=== PATIENT | female | born 1945 | race Caucasian/White ===

== ENCOUNTER 2017-09-02 11:12 | Inpatient (IN) | payer MEDICARE ==
[2017-09-02] VITALS (17 sets, daily range): BP systolic 136–164; BP diastolic 77–111
[~2017-09-02] VITALS: Ht 167.6 cm; Wt 103.6 kg
[2017-09-02] MEDS ORDERED: ONDANSETRON HCL 4 MG/2 ML VIAL ONE (11:35)
[2017-09-02] MEDS ORDERED: MORPHINE SULFATE 8 MG/ML VIAL ONE (11:36)
[2017-09-02 11:41] LABS: BASOPHILS % (AUTO) 0.5 % (0.0-5.0); EOSINOPHILS % (AUTO) 0.6 % (0.0-8.0); LYMPHOCYTES % (AUTO) 19.5 % (21.0-51.0); MEAN CORPUSCULAR HEMOGLOBIN 29.6 pg (27.0-33.0); MEAN CORPUSCULAR HGB CONC 33.9 g/dL (32.0-36.0); MEAN CORPUSCULAR VOLUME 87.3 fL (79-99); MONOCYTES % (AUTO) 5.8 % (3.0-13.0); NEUTROPHILS % (AUTO) 73.6 % (40.0-77.0); PLATELET COUNT (AUTO) 198 K/uL (130-400); RED BLOOD CELL COUNT(AUTO) 5.15 MIL/uL (4.00-5.50); RED CELL DISTRIBUTION WIDTH 13.6 % (11.0-15.5)
[2017-09-02 11:50] LABS: CREATININE 0.9 mg/dL (0.5-1.5); POTASSIUM 4.5 mmol/L (3.5-5.1)
[2017-09-02] MEDS ORDERED: METOPROLOL TARTRATE 1 MG/ML 5ML VIAL IV ONE ×2 (11:52→13:10)
[2017-09-02] MEDS ORDERED: NITROGLYCERIN 50 MG/D5% WATER 1 BOT ONE (11:52)
[2017-09-02 12:07] LABS: ALBUMIN 3.7 g/dL (3.5-5.0); BILIRUBIN,TOTAL 0.6 mg/dL (0.2-1.0); CREATINE KINASE MB 0.8 ng/mL (0.5-3.6); TOTAL PROTEIN, SERUM 7.5 g/dL (6.0-8.3)
[2017-09-02] MEDS: SODIUM CHLORIDE 0.9% 1000ML 1,000 ML IV SCH ×2 (12:20→22:33)
[2017-09-02] MEDS ORDERED: MORPHINE SULFATE 2 MG/ML 1ML SYG IV PRN (12:30)
[2017-09-02] MEDS ORDERED: ACETAMINOPHEN 325 MG TAB PO PRN (12:30)
[2017-09-02] MEDS ORDERED: HYDRALAZINE HCL 20 MG/ML VIAL IV PRN (12:30)
[2017-09-02 12:34] LABS: INR 1.1 (0.85-1.15); PARTIAL THROMBOPLASTIN TIME 25.5 SEC (26.3-35.5); PROTHROMBIN TIME 11.5 SEC (9.6-11.6)
[2017-09-02] MEDS ORDERED: BIVALIRUDIN 250 MG/VIAL IV ONE ×2 (12:38→14:14)
[2017-09-02] MEDS ORDERED: ISOVUE-370 50ML VIAL IV ONE (12:38)
[2017-09-02] MEDS ORDERED: IOPAMIDOL-370 100 ML VIAL IV ONE ×2 (12:38→14:20)
[2017-09-02] MEDS ORDERED: LIDOCAINE HCL 2% 20ML ONE (12:38)
[2017-09-02] MEDS ORDERED: NITROGLYCERIN 5 MG/ML 10 ML VIAL IV ONE (13:04)
[2017-09-02] MEDS ORDERED: MORPHINE SULFATE 4 MG/1ML SYG ONE (13:04)
[2017-09-02] MEDS ORDERED: DOPAMINE HCL 400 MG/D5%-WATER 0 ML IV ONE (13:11)
[2017-09-02] MEDS ORDERED: LIDOCAINE PF 2% 5ML ABBOJECT ONE (13:11)
[2017-09-02] MEDS ORDERED: ATROPINE SULFATE 0.1 MG/ML 10 ML SYG IVP ONE (13:11)
[2017-09-02] MEDS ORDERED: EPTIFIBATIDE 2 MG/ML 10 ML VIAL IVP ONE (13:30)
[2017-09-02] MEDS ORDERED: EPTIFIBATIDE 75MG/100ML BOTTLE 100 ML IV ONE (13:30)
[2017-09-02] MEDS ORDERED: TICAGRELOR 90 MG TABLET ONE (13:34)
[2017-09-02] MEDS ORDERED: EPTIFIBATIDE 75MG/100ML BOTTLE 100 ML IV SCH (15:00)
[2017-09-02] MEDS ORDERED: NITROGLYCERIN 50 MG/D5% WATER 1 BOT IV PRN (15:00)
[2017-09-02] MEDS ORDERED: SODIUM CHLORIDE 0.9% 1000ML 1,000 ML IV SCH (15:00)
[2017-09-02] MEDS: ONDANSETRON HCL 4 MG/2 ML VIAL IV PRN ×2 (16:08→22:33)
[2017-09-02 16:52] LABS: CREATININE 0.9 mg/dL (0.5-1.5); MAGNESIUM 1.8 mg/dL (1.80-2.40); POTASSIUM 4.9 mmol/L (3.5-5.1)
[2017-09-02] MEDS ORDERED: MAGNESIUM 2GM PREMIX 50ML 50 ML IV PRN (17:15)
[2017-09-02 18:13] LABS: CREATINE KINASE MB 258.6 ng/mL (0.5-3.6)
[2017-09-02 18:14] LABS: TROPONIN I 90.67 ng/mL (0.00-0.06)
[2017-09-02] MEDS: METOPROLOL TARTRATE 25 MG TAB PO SCH (20:11)
[2017-09-02] MEDS: ATORVASTATIN CALCIUM 40 MG TABLET PO SCH (20:11)
[2017-09-02] MEDS ORDERED: METOPROLOL TARTRATE 25 MG TAB PO SCH (21:00)
[2017-09-03] VITALS (19 sets, daily range): BP systolic 98–144; BP diastolic 46–86
[2017-09-03 02:54] LABS: HEMATOCRIT 41.7 % (36-48); MEAN CORPUSCULAR HEMOGLOBIN 29.6 pg (27.0-33.0); MEAN CORPUSCULAR HGB CONC 34.3 g/dL (32.0-36.0); MEAN CORPUSCULAR VOLUME 86.2 fL (79-99); PLATELET COUNT (AUTO) 193 K/uL (130-400); RED BLOOD CELL COUNT(AUTO) 4.83 MIL/uL (4.00-5.50); RED CELL DISTRIBUTION WIDTH 13.4 % (11.0-15.5); WHITE BLOOD COUNT (AUTO) 9.6 K/uL (4.8-10.8)
[2017-09-03 03:36] LABS: CREATININE 0.9 mg/dL (0.5-1.5); LYMPHOCYTES % (MANUAL) 12 % (22-44); MAGNESIUM 2.3 mg/dL (1.80-2.40); MAN.DIFF COMMENT-IMPRESSION MANUAL DIFFERENTIAL; MONOCYTES % (MANUAL) 5 % (2-9); POTASSIUM 4.3 mmol/L (3.5-5.1); SEGMENTED NEUTROPHILS % 83 % (40-70)
[2017-09-03 03:54] LABS: TROPONIN I 82.12 ng/mL (0.00-0.06)
[2017-09-03] MEDS: SODIUM CHLORIDE 0.9% 1000ML 1,000 ML IV SCH ×3 (07:33→23:09)
[2017-09-03] MEDS: ASPIRIN 325MG EC TAB 325 MG TABLET.DR PO SCH (08:21)
[2017-09-03] MEDS: METOPROLOL TARTRATE 25 MG TAB PO SCH ×3 (08:22→19:49)
[2017-09-03] MEDS: PANTOPRAZOLE SODIUM 40 MG TABLET.DR PO SCH (08:22)
[2017-09-03] MEDS: LISINOPRIL 10 MG TABLET PO SCH (08:22)
[2017-09-03] MEDS ORDERED: TICAGRELOR 90 MG TABLET PO SCH (09:00)
[2017-09-03 10:08] LABS: CREATINE KINASE MB 147.1 ng/mL (0.5-3.6)
[2017-09-03 10:09] LABS: TROPONIN I 39.73 ng/mL (0.00-0.06)
[2017-09-03] MEDS ORDERED: PRASUGREL HCL 10 MG TABLET PO SCH (10:45)
[2017-09-03] MEDS: ATORVASTATIN CALCIUM 40 MG TABLET PO SCH (21:30)
[2017-09-04 03:32] VITALS: BP 114/71
[2017-09-04 07:00] VITALS: BP 117/66
[2017-09-04] MEDS ORDERED: PRASUGREL HCL 10 MG TABLET PO SCH (09:00)
[2017-09-04] MEDS: ASPIRIN 325MG EC TAB 325 MG TABLET.DR PO SCH (09:20)
[2017-09-04] MEDS: PANTOPRAZOLE SODIUM 40 MG TABLET.DR PO SCH (09:20)
[2017-09-04] MEDS: METOPROLOL TARTRATE 25 MG TAB PO SCH (09:20)
[2017-09-04] MEDS: LISINOPRIL 10 MG TABLET PO SCH (09:21)
[2017-09-04 11:34] VITALS: BP 109/69
[2017-09-04] MEDS ORDERED: PRAS10TA6 PO (13:05)
[2017-09-04] MEDS ORDERED: LISI10TA7 PO (13:05)
[2017-09-04] MEDS ORDERED: ATOR40TA69 PO (13:05)
[2017-09-04] MEDS ORDERED: PANT40TA PO (13:05)
[2017-09-04] MEDS ORDERED: ASPI-891 PO (13:05)
[2017-09-04] MEDS ORDERED: METO25 PO (13:05)
== END 2017-09-04 14:30 | disposition home or self-care (01) | DRG 246 ==
LOC: EDH 11:12 → EDHIP 12:20 → 2CH 15:21 → 2DH 09-03 21:07
PROVIDERS: ADMIT Family Medicine; ATTEND Family Medicine
PROC: 4A023N7 Measurement of Cardiac Sampling and Pressure, Left Heart, Percutaneous Approach (ICD-10-PCS; principal; 2017-09-02)
PROC: B2151ZZ Fluoroscopy of Left Heart using Low Osmolar Contrast (ICD-10-PCS; 2017-09-02)
PROC: B2161ZZ Fluoroscopy of Right and Left Heart using Low Osmolar Contrast (ICD-10-PCS; 2017-09-02)
PROC: B41F1ZZ Fluoroscopy of Right Lower Extremity Arteries using Low Osmolar Contrast (ICD-10-PCS; 2017-09-02)
PROC: 027034Z Dilation of Coronary Artery, One Artery with Drug-eluting Intraluminal Device, Percutaneous Approach (ICD-10-PCS; 2017-09-02)
PROC: 02703ZZ Dilation of Coronary Artery, One Artery, Percutaneous Approach (ICD-10-PCS; 2017-09-02)
DX: T82.855A Stenosis of coronary artery stent, initial encounter (principal); I21.9 Acute myocardial infarction, unspecified; I16.1 Hypertensive emergency; I25.110 Atherosclerotic heart disease of native coronary artery with unstable angina pectoris; R07.89 Other chest pain; E66.9 Obesity, unspecified; E78.5 Hyperlipidemia, unspecified; I10 Essential (primary) hypertension; Z87.891 Personal history of nicotine dependence; Z91.19 Patient's noncompliance with other medical treatment and regimen
CPT/HCPCS: 36415; 71045; 80048; 80053; 80061; 82550; 82553; 83735; 83874; 84484; 85025; 85610; 85730; 92920; 93005; 93454; 99291; C1725; C1760; C1769; C1887; C1894; C9606; J0461; J0583; J1265; J1327; J1644; J2001; J2270; J2405; J3475; J3490; Q9967